=== PATIENT | male | born 1990 | race Caucasian/White ===

== ENCOUNTER → 2019-02-05 | Outpatient (REF) | payer SELFPAY | LOC: M LAB REF 16:13 | PROVIDERS: ATTEND Physician Assistant | DX: R30.0 Dysuria (principal) ==

== ENCOUNTER → 2021-09-04 | Outpatient (REF) | payer OTHER ==
[2021-09-04 13:40] LABS: LDH LACTATE DEHYDROGENASE 128 U/L (87-241)
[2021-09-04 14:33] LABS: HIV 1&2 SCREEN CENTAUR NEGATIVE (NEGATIVE)
[2021-09-05 20:12] LABS: ENDOMYSIAL ABY IgA Negative (Negative); TISSUE TRANSGLUTAMINASE IgA 2 U/mL (0-3)
== END ==
LOC: M LAB REF 12:03
PROVIDERS: ATTEND Internal Medicine
DX: R63.4 Abnormal weight loss (principal); R59.0 Localized enlarged lymph nodes

== ENCOUNTER → 2021-09-07 | Outpatient (CLI) | payer OTHER | LOC: M WHC 08:29 | PROVIDERS: ATTEND Internal Medicine | DX: N63.20 Unspecified lump in the left breast, unspecified quadrant (principal); R63.4 Abnormal weight loss | CPT/HCPCS: 76642; 77066; G0279 ==